=== PATIENT | female | born 1970 | race African-American/Black ===

== ENCOUNTER 2019-03-10 00:42 | Emergency (ER) | payer OTHER ==
[~2019-03-10] VITALS: Ht 170.2 cm; Wt 72.6 kg
[2019-03-10] MEDS ORDERED: TOPROL XL25 MG PO (00:53)
[2019-03-10] MEDS ORDERED: NORVASC10 MG PO (00:53)
[2019-03-10 01:48] VITALS: BP 161/91
[2019-03-10] MEDS ORDERED: CATAPRES0.1 MG PO (01:48)
== END 2019-03-10 01:54 | disposition home or self-care (01) ==
LOC: ER 00:42
DX: I10 Essential (primary) hypertension (principal); R51 Headache; F17.210 Nicotine dependence, cigarettes, uncomplicated; Z88.0 Allergy status to penicillin; Z88.2 Allergy status to sulfonamides